=== PATIENT | female | born 1955 | race Asian ===

== ENCOUNTER 2021-10-13 13:01 | Outpatient (CLI) | payer OTHER | END 2021-10-13 13:06 | disposition home or self-care (01) | LOC: MAMO-SONO 13:01 | PROVIDERS: ATTEND General Practice | DX: Z12.31 Encounter for screening mammogram for malignant neoplasm of breast (principal); N64.4 Mastodynia ==

== ENCOUNTER 2021-10-13 14:09 | Outpatient (CLI) | payer OTHER | END 2021-10-13 14:13 | disposition home or self-care (01) | LOC: NUCLEAR 14:09 | PROVIDERS: ATTEND General Practice | DX: M81.0 Age-related osteoporosis without current pathological fracture (principal) ==

== ENCOUNTER 2023-01-21 12:18 | Outpatient (CLI) | payer OTHER | END 2023-01-21 12:31 | disposition home or self-care (01) | LOC: MAMO-SONO 12:18 | PROVIDERS: ATTEND General Practice | DX: Z12.31 Encounter for screening mammogram for malignant neoplasm of breast (principal); N64.4 Mastodynia ==

== ENCOUNTER 2023-12-04 08:13 | Outpatient (CLI) | payer OTHER | END 2023-12-04 08:44 | disposition home or self-care (01) | LOC: SONOGRAMA 08:13 | PROVIDERS: ATTEND General Practice | DX: R10.9 Unspecified abdominal pain (principal); B02.23 Postherpetic polyneuropathy ==